=== PATIENT | male | born 1995 | race African-American/Black ===

== ENCOUNTER 2017-05-23 15:54 | Emergency (ER) | payer BC ==
[~2017-05-23] VITALS: Ht 185.4 cm; Wt 112.5 kg
[2017-05-23 16:10] VITALS: BP_SYST 129
[2017-05-23] MEDS ORDERED: KETOROLAC TROMETHAMINE 60 MG/2 ML VIAL IM ONE (17:00)
[2017-05-23 18:05] VITALS: BP_SYST 110
== END 2017-05-23 18:05 | disposition home or self-care (01) ==
LOC: SED 15:54
DX: S93.491A Sprain of other ligament of right ankle, initial encounter (principal); Z88.1 Allergy status to other antibiotic agents; X58.XXXA Exposure to other specified factors, initial encounter; Y93.39 Activity, other involving climbing, rappelling and jumping off; Y92.89 Other specified places as the place of occurrence of the external cause; Y99.8 Other external cause status
CPT/HCPCS: 29515; 73610; 96372; 99284; J1885

== ENCOUNTER 2018-05-16 01:48 | Inpatient (IN) | payer BC ==
[~2018-05-16] VITALS: Ht 185.4 cm; Wt 91.6 kg
[2018-05-16 01:59] VITALS: BP_SYST 113
[2018-05-16] MEDS ORDERED: CLINDAMYCIN 600 mg/50mL D5W 50 ML IV ONE (03:15)
[2018-05-16] MEDS ORDERED: KETOROLAC TROMETHAMINE 30 MG VIAL IVP ONE (03:15)
[2018-05-16] MEDS ORDERED: NACL 0.9% 1,000 ML IV ONE (03:45)
[2018-05-16] MEDS ORDERED: IOHEXOL 0 ML IV ONE (04:40)
[2018-05-16 04:45] LABS: RED BLOOD CELL COUNT(AUTO) 5.29 MIL/uL (4.2-6.2); WHITE BLOOD COUNT (AUTO) 15.6 K/uL (4.5-11.0)
[2018-05-16 04:46] LABS: HEMATOCRIT 45.3 % (36-54); HEMOGLOBIN 15.3 g/dL (14.0-18.0); MEAN CORPUSCULAR HEMOGLOBIN 29 pg (27-31); MEAN CORPUSCULAR HGB CONC 34 % (32-36); MEAN CORPUSCULAR VOLUME 86 fL (79.0-98.0); PLATELET COUNT (AUTO) 216 K/uL (130-430); RED CELL DISTRIBUTION WIDTH 12.8 % (9.0-15.0)
[2018-05-16 04:48] LABS: CALCIUM 9.5 mg/dL (8.4-11.0); CREATININE 1.09 mg/dL (0.55-1.30); POTASSIUM 3.6 mmol/L (3.5-5.1)
[2018-05-16 04:52] LABS: ALBUMIN 4.2 g/dL (3.4-4.8); TOTAL BILIRUBIN 1.3 mg/dL (0.0-1.0)
[2018-05-16 05:00] LABS: ATYPICAL LYMPHOCYTES % 0 % (0-0); BAND % (MANUAL) 15 % (0-6); BASOPHILS % (MANUAL) 0 % (0-2); EOSINOPHILS % (MANUAL) 0 % (0-7); LYMPHOCYTES % (MANUAL) 7 % (20-46); MONOCYTES % (MANUAL) 9 % (0-11)
[2018-05-16] MEDS ORDERED: LIDOCAINE VISCOUS 2%, 15 ML UDC ONE (05:01)
[2018-05-16] MEDS ORDERED: LIDOCAINE VISCOUS 2%, 15 ML UDC MM ONE (05:45)
[2018-05-16] MEDS ORDERED: MORPHINE 4 MG/ML INJ. SYRINGE IVP ONE (06:00)
[2018-05-16] MEDS ORDERED: ONDANSETRON HCL 4 MG/2 ML VIAL IVP ONE (06:15)
[2018-05-16] MEDS ORDERED: ONDANSETRON HCL 4 MG/2 ML VIAL ONE (06:21)
[2018-05-16] MEDS ORDERED: D5/0.45 NS 1,000 ML IV ONE (07:15)
[2018-05-16] MEDS ORDERED: methylPREDNISolone SOD SUCC/PF 62.5 MG/ML VIAL IVP ONE (07:15)
[2018-05-16] MEDS ORDERED: ACETAMINOPHEN 325 MG TABLET PO PRN (07:30)
[2018-05-16] MEDS ORDERED: ACETAMINOPHEN 325 MG TABLET ONE (07:39)
[2018-05-16 08:06] VITALS: BP_SYST 100
[2018-05-16] MEDS ORDERED: MORPHINE 4 MG/ML INJ. SYRINGE IVP PRN ×2 (09:30)
[2018-05-16 11:14] VITALS: BP_SYST 103
[2018-05-16 12:00] VITALS: BP_SYST 105
[2018-05-16] MEDS: CLINDAMYCIN 600 MG in D5W 50 ML IV SCH ×2 (12:23→20:20)
[2018-05-16] MEDS: GENTAMICIN SULFATE IV SCH (14:14)
[2018-05-16] MEDS: NS IV SCH (14:14)
[2018-05-16] MEDS ORDERED: ACETAMINOPHEN 650 MG/20.3 ML UDC PO PRN (14:45)
[2018-05-16] MEDS ORDERED: IOHEXOL 100 ML IV ONE (15:15)
[2018-05-16 18:00] VITALS: BP_SYST 114
[2018-05-16 19:10] VITALS: BP_SYST 105
[2018-05-17 00:36] VITALS: BP_SYST 104
[2018-05-17 01:41] LABS: CREATININE 1.02 mg/dL (0.55-1.30)
[2018-05-17] MEDS: CLINDAMYCIN 600 MG in D5W 50 ML IV SCH ×3 (04:46→20:51)
[2018-05-17 06:57] LABS: BASOPHILS % (AUTO) 0.1 % (0.0-2.0); EOSINOPHILS # (AUTO) 0.1 K/uL (0.0-0.4); EOSINOPHILS % (AUTO) 0.8 % (0.0-4.0); HEMATOCRIT 45.5 % (36-54); HEMOGLOBIN 14.6 g/dL (14.0-18.0); LYMPHOCYTES # (AUTO) 0.6 K/uL (1.0-5.5); LYMPHOCYTES % (AUTO) 4.6 % (20.5-51.5); MEAN CORPUSCULAR HEMOGLOBIN 29 pg (27-31); MEAN CORPUSCULAR HGB CONC 32 % (32-36); MEAN CORPUSCULAR VOLUME 90 fL (79.0-98.0); MONOCYTES # (AUTO) 1.1 K/uL (0.0-1.0); MONOCYTES % (AUTO) 8.4 % (1.7-9.3); NEUTROPHILS # (AUTO) 11.6 K/uL (1.8-7.7); NEUTROPHILS % (AUTO) 86.1 % (40.0-70.0); PLATELET COUNT (AUTO) 215 K/uL (130-430); RED BLOOD CELL COUNT(AUTO) 5.09 MIL/uL (4.2-6.2); RED CELL DISTRIBUTION WIDTH 12.6 % (9.0-15.0); WHITE BLOOD COUNT (AUTO) 13.4 K/uL (4.5-11.0)
[2018-05-17 08:04] VITALS: BP_SYST 118
[2018-05-17 10:01] LABS: ERYTHROCYTE SEDIMENTATION RATE 6 MM/HR (0-15)
[2018-05-17 13:02] VITALS: BP_SYST 114
[2018-05-17] MEDS: NS IV SCH (13:12)
[2018-05-17] MEDS: GENTAMICIN SULFATE IV SCH (13:12)
[2018-05-17 16:35] VITALS: BP_SYST 102
[2018-05-17 20:20] VITALS: BP_SYST 109
[2018-05-17 23:17] VITALS: BP_SYST 114
[2018-05-18] MEDS: CLINDAMYCIN 600 MG in D5W 50 ML IV SCH ×2 (04:39→12:02)
[2018-05-18 07:47] LABS: BASOPHILS % (AUTO) 0.4 % (0.0-2.0); EOSINOPHILS # (AUTO) 0.2 K/uL (0.0-0.4); EOSINOPHILS % (AUTO) 2.2 % (0.0-4.0); HEMATOCRIT 42.9 % (36-54); HEMOGLOBIN 13.7 g/dL (14.0-18.0); LYMPHOCYTES # (AUTO) 1.4 K/uL (1.0-5.5); LYMPHOCYTES % (AUTO) 15.3 % (20.5-51.5); MEAN CORPUSCULAR HEMOGLOBIN 28 pg (27-31); MEAN CORPUSCULAR HGB CONC 32 % (32-36); MEAN CORPUSCULAR VOLUME 89 fL (79.0-98.0); MONOCYTES # (AUTO) 1.2 K/uL (0.0-1.0); MONOCYTES % (AUTO) 13.2 % (1.7-9.3); NEUTROPHILS # (AUTO) 6.4 K/uL (1.8-7.7); NEUTROPHILS % (AUTO) 68.9 % (40.0-70.0); PLATELET COUNT (AUTO) 214 K/uL (130-430); RED BLOOD CELL COUNT(AUTO) 4.83 MIL/uL (4.2-6.2); RED CELL DISTRIBUTION WIDTH 12.6 % (9.0-15.0); WHITE BLOOD COUNT (AUTO) 9.2 K/uL (4.5-11.0)
[2018-05-18 07:58] LABS: CALCIUM 8.6 mg/dL (8.4-11.0); CREATININE 1.1 mg/dL (0.55-1.30); POTASSIUM 3.6 mmol/L (3.5-5.1)
[2018-05-18 08:00] VITALS: BP_SYST 118
[2018-05-18 10:08] LABS: ERYTHROCYTE SEDIMENTATION RATE 8 MM/HR (0-15)
[2018-05-18 12:00] VITALS: BP_SYST 113
[2018-05-18] MEDS: NS IV SCH (13:03)
[2018-05-18] MEDS: GENTAMICIN SULFATE IV SCH (13:03)
[2018-05-18 13:13] LABS: C-REACTIVE PROTEIN QUANT 4.9 mg/dL (0-0.5)
[2018-05-18 13:34] VITALS: BP_SYST 113
== END 2018-05-18 14:10 | disposition home or self-care (01) | DRG 872 ==
LOC: SED 01:48 → SMU 07:07
PROVIDERS: ADMIT Preventive Medicine Preventive Medicine/Occupational Environmental Medicine; ATTEND Preventive Medicine Preventive Medicine/Occupational Environmental Medicine
DX: A41.9 Sepsis, unspecified organism (principal); E72.20 Disorder of urea cycle metabolism, unspecified; J36 Peritonsillar abscess; D64.9 Anemia, unspecified; E78.5 Hyperlipidemia, unspecified; R13.10 Dysphagia, unspecified; R73.9 Hyperglycemia, unspecified; Z88.0 Allergy status to penicillin; Z88.8 Allergy status to other drugs, medicaments and biological substances
CPT/HCPCS: 36415; 70490; 70491-TC; 80048; 80053; 80170-TC; 85007; 85025; 85027; 85651-TC; 86140; 86403; 87040-TC; 87081; 96365; 96375; 99285; J1580; J1885; J2001; J2270; J2405; J2930; J3490; J7030; J7060; Q9967